=== PATIENT | female | born 1995 | race Caucasian/White ===

== ENCOUNTER → 2024-01-27 06:57 | Outpatient (REF) | payer BC, SELFPAY | LOC: PNTC 06:57 | PROVIDERS: ATTENDING PHYSICIAN Obstetrics & Gynecology | DX: Z36.0 Encounter for antenatal screening for chromosomal anomalies (principal); Z36.82 Encounter for antenatal screening for nuchal translucency | CPT/HCPCS: 36415; 76801; 76813 ==

== ENCOUNTER → 2024-02-24 08:55 | Outpatient (REF) | payer BC, SELFPAY | LOC: PNTC 08:55 | PROVIDERS: ATTENDING PHYSICIAN Obstetrics & Gynecology | DX: O99.320 Drug use complicating pregnancy, unspecified trimester (principal) | CPT/HCPCS: 76805 ==

== ENCOUNTER → 2024-03-23 07:53 | Outpatient (REF) | payer BC, SELFPAY | LOC: PNTC 07:53 | PROVIDERS: ATTENDING PHYSICIAN Student in an Organized Health Care Education/Training Program | DX: O99.320 Drug use complicating pregnancy, unspecified trimester (principal) | CPT/HCPCS: 76811 ==

== ENCOUNTER → 2024-05-09 07:00 | Outpatient (REF) | payer BC, SELFPAY | LOC: PNTC 07:00 | PROVIDERS: ATTENDING PHYSICIAN Obstetrics & Gynecology | DX: O99.320 Drug use complicating pregnancy, unspecified trimester (principal) | CPT/HCPCS: 76816 ==

== ENCOUNTER → 2024-05-22 07:32 | Outpatient (REF) | payer BC, SELFPAY | LOC: PNTC 07:32 | PROVIDERS: ATTENDING PHYSICIAN Obstetrics & Gynecology | DX: Z34.03 Encounter for supervision of normal first pregnancy, third trimester (principal) | CPT/HCPCS: 36415; 86850; 86900; 86901; 96372; J2790 ==

== ENCOUNTER → 2024-06-20 07:24 | Outpatient (REF) | payer BC, SELFPAY | LOC: PNTC 07:24 | PROVIDERS: ATTENDING PHYSICIAN Obstetrics & Gynecology | DX: O99.320 Drug use complicating pregnancy, unspecified trimester (principal) | CPT/HCPCS: 76816 ==

== ENCOUNTER → 2024-08-01 07:28 | Outpatient (REF) | payer BC, SELFPAY | LOC: PNTC 07:28 | PROVIDERS: ATTENDING PHYSICIAN Obstetrics & Gynecology | DX: O99.320 Drug use complicating pregnancy, unspecified trimester (principal) | CPT/HCPCS: 76816 ==

== ENCOUNTER 2024-08-08 20:50 | Inpatient (IN) | payer BC, SELFPAY ==
[2024-08-08] MEDS: LR 1000 IV ×2 (20:45→23:40)
[2024-08-08 21:56] VITALS: BP 148/96; BMI 33.8
[2024-08-08 21:56] LABS: % Basophils 0.4 % (0-2); % Eosinophils 0.9 % (0-6); % Immature Granulocytes 0.6 % (0-0.5); % Lymphocytes 16.5 % (20.5-51.1); % Monocytes 8.8 % (1.7-9.3); % Neutrophils 72.8 % (42.2-75.2); Absolute Basophils 0.1 10^3/uL (0-0.2); Absolute Eosinophils 0.1 10^3/uL (0-0.7); Absolute Immature Granulocytes 0.1 10^3/uL (0-0.05); Absolute Lymphocytes 1.9 10^3/uL (1.2-3.4); Absolute Neutrophils 8.3 10^3/uL (1.4-6.5); Hemoglobin 11.6 g/dL (12.0-16.0); Mean Corp Hgb Conc. 35.2 g/dL (33.0-37.0); Mean Corpuscular Volume 82.5 fL (81.0-99.0); Nucleated Red Blood Cells % 0 %; Platelet Count 181 10^3/uL (130-400); Red Cell Dist. Width 13.7 % (11.5-14.5); White Blood Cell Count 11.4 10^3/uL (4.8-10.8)
[2024-08-08 22:10] LABS: ALT (SGPT) 20 U/L (0-35); AST (SGOT) 28 U/L (14-36); Albumin 4.1 g/dl (3.5-5.0); Alkaline Phosphatase 165 U/L (38-126); Blood Urea Nitrogen 12 mg/dl (7-17); Calcium 9.5 mg/dl (8.4-10.2); Carbon Dioxide 23 mmol/L (22-30); Chloride 103 mmol/L (98-107); Estimated Creatinine Clearance > 125 ml/min; Glucose 90 mg/dl (70-99); Sodium 135 mmol/L (135-145); Total Bilirubin 0.4 mg/dl (0.2-1.3); Total Protein 6.8 g/dl (6.3-8.2); eGFR > 60.00
[2024-08-08] MEDS: PENICILLIN 110 UNITS IV (22:17)
[2024-08-09 00:09] LABS: Protein/creatinine Ratio 0.3; Urine Protein 13 mg/dl
[2024-08-09] MEDS: SUBLIMAZE 100 MCG EPIDURAL (00:09)
[2024-08-09] MEDS: FENTANYL/BUPIVACAINE 100 EPIDURAL ×2 (00:10→07:55)
[2024-08-09] MEDS: PENICILLIN 55 UNITS IV ×3 (02:06→10:05)
[2024-08-09] MEDS: LR 1000 IV (10:06)
[2024-08-09] MEDS: PITOCIN 30 UNITS/NSS 500 ML IV (12:50)
[2024-08-09] MEDS: XYLOCAINE-MPF 1% VIAL 10 ML INFIL (13:02)
[2024-08-09] MEDS: TYLENOL 650 MG PO (13:54)
[2024-08-09] MEDS: MOTRIN 600 MG PO (13:54)
[2024-08-10] MEDS: MOTRIN 600 MG PO ×3 (00:47→19:32)
[2024-08-10] MEDS: TYLENOL 650 MG PO ×3 (00:48→19:32)
[2024-08-10 04:27] LABS: Hematocrit 33.4 % (37.0-47.0); Hemoglobin 11.4 g/dL (12.0-16.0)
[2024-08-10] MEDS: SENOKOT-S 1 TABLET PO (10:24)
[2024-08-11] MEDS: MOTRIN 600 MG PO ×3 (06:44→18:18)
[2024-08-11] MEDS: PROCARDIA XL (EXTENDED RELEASE) 30 MG PO (10:04)
[2024-08-11 11:38] LABS: Syphilis/T. pallidum Ab Reflex Negative (Negative)
[2024-08-11] MEDS: SENOKOT-S 1 TABLET PO (12:21)
[2024-08-11] MEDS: TYLENOL 650 MG PO ×2 (12:22→18:17)
[2024-08-12] MEDS: TYLENOL 650 MG PO (00:43)
[2024-08-12] MEDS: MOTRIN 600 MG PO ×2 (00:43→12:10)
[2024-08-12] MEDS: PROCARDIA XL (EXTENDED RELEASE) 30 MG PO (09:06)
[2024-08-12] MEDS: SENOKOT-S 1 TABLET PO (09:06)
== END 2024-08-12 12:30 | disposition home or self-care (01) | DRG 807 ==
LOC: LDRP 20:50
PROVIDERS: Obstetrics & Gynecology; ADMITTING PHYSICIAN Student in an Organized Health Care Education/Training Program; FAMILY PHYSICIAN Family Medicine
PROC: 10907ZC Drainage of Amniotic Fluid, Therapeutic from Products of Conception, Via Natural or Artificial Opening (ICD-10-PCS; 2024-08-09)
PROC: 0KQM0ZZ Repair Perineum Muscle, Open Approach (ICD-10-PCS; 2024-08-09)
PROC: 10E0XZZ Delivery of Products of Conception, External Approach (ICD-10-PCS; 2024-08-09)
DX: O99.824 Streptococcus B carrier state complicating childbirth (principal); Z37.0 Single live birth; O99.344 Other mental disorders complicating childbirth; O26.893 Other specified pregnancy related conditions, third trimester; Z67.31 Type AB blood, Rh negative; Z3A.39 39 weeks gestation of pregnancy; F90.9 Attention-deficit hyperactivity disorder, unspecified type; O14.04 Mild to moderate pre-eclampsia, complicating childbirth; O76 Abnormality in fetal heart rate and rhythm complicating labor and delivery; O70.1 Second degree perineal laceration during delivery; O99.62 Diseases of the digestive system complicating childbirth; K21.9 Gastro-esophageal reflux disease without esophagitis
CPT/HCPCS: 88307; 80053; 82570; 84156; 85014; 85018; 85025; 86780; 86850; 86900; 86901